=== PATIENT | male | born 2000 | race Caucasian/White ===

== ENCOUNTER 2024-09-13 18:39 | Emergency (ER) | payer OTHER, BC ==
[2024-09-13 20:08] LABS: BILIRUBIN,URINE NEGATIVE (NEGATIVE); GLUCOSE,URINE NORMAL (NORMAL); KETONES,URINE NEGATIVE (NEGATIVE); LEUKOCYTE ESTERASE,URINE NEGATIVE (NEGATIVE); NITRITE,URINE NEGATIVE (NEGATIVE); OCCULT BLOOD,URINE NEGATIVE (NEGATIVE); PROTEIN,URINE NEGATIVE (NEGATIVE); UROBILINOGEN,URINE NORMAL (NEGATIVE)
[2024-09-13 20:09] LABS: APPEARANCE,URINE CLEAR (CLEAR); BACTERIA,URINE OCCASIONAL (NS); COLOR,URINE YELLOW (YELLOW); RBC,URINE NOT SEEN (0-5); SQUAMOUS EPITHELIAL CELLS,UR OCCASIONAL (NS,R,O); WBC,URINE 0-5 (0-5)
== END 2024-09-13 20:20 | disposition home or self-care (01) ==
LOC: FB.ED 18:39
DX: S00.03XA Contusion of scalp, initial encounter (principal); S20.211A Contusion of right front wall of thorax, initial encounter; S50.811A Abrasion of right forearm, initial encounter; V29.408A Other motorcycle driver injured in collision with unspecified motor vehicles in traffic accident, initial encounter; Y93.55 Activity, bike riding
CPT/HCPCS: 70450; 72125; 81001; 99283; 99284